=== PATIENT | female | born 1960 | race Caucasian/White ===

== ENCOUNTER → 2016-08-06 | Outpatient (REF) ==
--- NOTE | 2016-08-06 14:44 | DI ---
EXAM: Two views of the chest. History: Physical exam screening chest radiograph Comparison: Chest radiograph 06/20/2014 Findings: Heart size is normal. No focal consolidation. No appreciable pleural fluid and no pneum othorax. Hiatal hernia. No acute osseous abnormalities. Impression: No acute cardiopulmonary process. Hiatal hernia.
== END ==
LOC: RAD 13:46
DX: Z02.89 Encounter for other administrative examinations (principal)

== ENCOUNTER 2017-03-20 08:27 | Outpatient (CLI) ==
[2017-03-20 16:42] VITALS: BP 163/75; TEMP 98.2
== END 2017-03-20 08:28 | disposition home or self-care (01) ==
LOC: LAB 08:27
PROVIDERS: ATTEND Family Medicine
DX: D64.9 Anemia, unspecified (principal)
CPT/HCPCS: 36415; 36430; 85014; 85018; 86850; 86900; 86922

== ENCOUNTER 2017-03-25 13:53 | Outpatient (CLI) | END 2017-03-25 13:54 | disposition home or self-care (01) | LOC: CAR 13:53 | PROVIDERS: ATTEND Family Medicine | DX: G47.30 Sleep apnea, unspecified (principal); R06.83 Snoring | CPT/HCPCS: 95810 ==

== ENCOUNTER 2017-07-16 12:52 | Outpatient (CLI) ==
[2017-07-16 13:08] VITALS: BP 152/96; TEMP 97.6
[2017-07-16] MEDS ORDERED: VENOFER 200 MG in SODIUM CHLORIDE 100 ML IV ONE (13:08)
== END 2017-07-16 14:54 | disposition home or self-care (01) ==
LOC: OPMED 12:52
PROVIDERS: ATTEND Family Medicine
DX: D50.9 Iron deficiency anemia, unspecified (principal)
CPT/HCPCS: 96365

== ENCOUNTER 2017-07-18 07:42 | Outpatient (CLI) ==
[2017-07-18 08:14] VITALS: BP 146/56; TEMP 98.2
[2017-07-18] MEDS ORDERED: VENOFER 200 MG in SODIUM CHLORIDE 100 ML IV ONE (08:16)
--- NOTE | 2017-07-18 08:49 | ED.PDOC ---
Procedures - IV/Art Line Insertion Location: Rt Hand Type of Line: Peripheral IV Invasive Line/IV Catheter Gauge: 22 Number of Attempts: 1 Blood Return Positive: Yes Invasive Line/IV Flushes Without Difficulty: Yes Conscious Sedation - Pre-op Assessment Weight: 255 lb
== END 2017-07-18 07:43 | disposition home or self-care (01) ==
LOC: OPMED 07:42
PROVIDERS: ATTEND Family Medicine
DX: D50.9 Iron deficiency anemia, unspecified (principal)
CPT/HCPCS: 96365

== ENCOUNTER 2017-07-20 08:41 | Outpatient (CLI) ==
[2017-07-20] MEDS ORDERED: VENOFER 200 MG in SODIUM CHLORIDE 100 ML IV ONE (09:07)
[2017-07-20 09:10] VITALS: BP 140/88; TEMP 98
== END 2017-07-20 08:42 | disposition home or self-care (01) ==
LOC: OPMED 08:41
PROVIDERS: ATTEND Family Medicine
DX: D50.9 Iron deficiency anemia, unspecified (principal)
CPT/HCPCS: 96365

== ENCOUNTER 2017-07-22 08:34 | Outpatient (CLI) ==
[2017-07-22] MEDS ORDERED: VENOFER 200 MG in SODIUM CHLORIDE 100 ML IV ONE (08:44)
[2017-07-22 08:48] VITALS: BP 132/88; TEMP 97.9
== END 2017-07-22 08:35 | disposition home or self-care (01) ==
LOC: OPMED 08:34
PROVIDERS: ATTEND Family Medicine
DX: D50.9 Iron deficiency anemia, unspecified (principal)
CPT/HCPCS: 96365

== ENCOUNTER 2017-07-24 08:23 | Outpatient (CLI) ==
[2017-07-24 08:43] VITALS: BP 127/85; TEMP 97.7
[2017-07-24] MEDS ORDERED: VENOFER 200 MG in SODIUM CHLORIDE 100 ML IV ONE (08:43)
== END 2017-07-24 08:24 | disposition home or self-care (01) ==
LOC: OPMED 08:23
PROVIDERS: ATTEND Family Medicine
DX: D50.9 Iron deficiency anemia, unspecified (principal)
CPT/HCPCS: 96365

== ENCOUNTER 2018-10-20 08:10 | Outpatient (CLI) | END 2018-10-20 08:11 | disposition home or self-care (01) | LOC: RAD 08:10 | PROVIDERS: ATTEND Family Medicine | DX: Z12.31 Encounter for screening mammogram for malignant neoplasm of breast (principal) ==